=== PATIENT | female | born 1965 ===

== ENCOUNTER 2019-07-04 11:47 | Outpatient (CLI) | payer OTHER | END 2019-07-04 11:50 | disposition home or self-care (01) | LOC: RAD 11:47 | DX: M16.12 Unilateral primary osteoarthritis, left hip (principal) ==

== ENCOUNTER 2025-03-17 08:13 | Outpatient (CLI) | payer OTHER | END 2025-03-17 08:52 | disposition home or self-care (01) | LOC: TOM 08:13 | PROVIDERS: ATTEND Family Medicine | DX: K57.32 Diverticulitis of large intestine without perforation or abscess without bleeding (principal) ==